=== PATIENT | male | born 1985 | race Caucasian/White ===

== ENCOUNTER 2017-01-13 09:02 | Emergency (ER) | payer SELFPAY ==
[~2017-01-13] VITALS: Ht 162.6 cm; Wt 56.0 kg
[~2017-01-13 09:02] MED LIST: BENT20TA PO; METR-1 PO; ZOFR4TAB3 SL
[2017-01-13 09:04] VITALS: BP 153/90; PULSE 58; RESP 20; TEMP 98; O2SAT 99
[2017-01-13] MEDS ORDERED: SODIUM CHLOR 0.9% 1000 ML INJ 1,000 ML IV SCH (09:34)
[2017-01-13 09:35] VITALS: O2SAT 98
[2017-01-13] MEDS ORDERED: SODIUM CHLORIDE 0.9% FLUSH 5 ML FLUSH IVF PRN (09:45)
[2017-01-13] MEDS ORDERED: MORPHINE SULFATE 4 MG/ML INJ IV PUSH ONE (09:45)
[2017-01-13] MEDS ORDERED: ONDANSETRON HCL 4 MG/2 ML VIAL IVP ONE (09:45)
[2017-01-13 09:51] LABS: AUTOMATED NEUTROPHIL # 6.2 TH/MM3 (1.8-7.7); BASOPHIL % 0.4 % (0.0-2.0); EOSINOPHIL % 0.2 % (0.0-4.0); HEMATOCRIT 41.9 % (39.0-51.0); HEMO FLAGS DIFF FINAL; LYMPH % 16.7 % (9.0-44.0); LYMPHOCYTE # 1.3 TH/MM3 (1.0-4.8); MEAN CELL VOLUME 79.8 FL (80.0-100.0); MEAN CORPUSCULAR HEMOGLOBIN 26.6 PG (27.0-34.0); MEAN CORPUSCULAR HGB CONC 33.3 % (32.0-36.0); MONO % 4.5 % (0.0-8.0); NEUT % 78.2 % (16.0-70.0); PLATELET COUNT 264 TH/MM3 (150-450); RED BLOOD COUNT 5.25 MIL/MM3 (4.50-5.90); RED CELL DISTRIBUTION WIDTH 13.1 % (11.6-17.2); WHITE BLOOD COUNT 7.9 TH/MM3 (4.0-11.0)
[2017-01-13 09:52] LABS: BACTERIA, URINE RARE /hpf; BLOOD, URINE NEG (NEG); GLUCOSE,URINE NEG (NEG); KETONE, URINE 40 mg/dL (NEG); MUCUS URINE MANY /lpf (OCC); NITRITE,URINE NEG (NEG); PH, URINE 7.5 (5.0-8.5); SQUAMOUS EPITHELIAL CELL URINE <1 /hpf (0-5); URINE COLOR YELLOW (YELLW/STRAW)
[2017-01-13 10:00] LABS: COMMENT (UR) CULT NOT INDICATED; CULTURE IF INDICATED CULT NOT INDICATED
[2017-01-13 10:07] LABS: ANION GAP 6 MEQ/L (5-15); AST (GOT) 37 U/L (15-37); BICARBONATE 29.1 MEQ/L (21.0-32.0); BLOOD UREA NITROGEN 14 MG/DL (7-18); CHLORIDE 106 MEQ/L (98-107); GLOMERULAR FILTRATION RATE 99 ML/MIN (>89); POTASSIUM 3.8 MEQ/L (3.5-5.1); SODIUM (NA) 141 MEQ/L (136-145)
[2017-01-13 10:11] VITALS: BP 141/90; PULSE 64; RESP 19; O2SAT 98
[2017-01-13 10:11] LABS: ALKALINE PHOSPHATASE 142 U/L (45-117); ALT (GPT) 53 U/L (12-78); TOTAL BILIRUBIN ADULT 0.4 MG/DL (0.2-1.0)
--- NOTE | 2017-01-13 10:11 | PD ---
HPI Chief Complaint: Abdominal Pain Time Seen by Provider: 09:31 Travel History International Travel<30 days: No Contact w/Intl Traveler<30days: No Traveled to known affect area: No History of Present Illness HPI Patient is a 31-year-old male presents emergency department with complaint of abdominal pain. Patient woke up this morning with left upper abdominal pain, nausea and vomiting. States he is thrown up "too many times to count". Vomited yellow. No hematemesis, hematochezia. Patient states he has a history of similar abdominal pain and takes Zantac intermittently but not daily. He notes a history of a previous cholecystectomy, denies history of pancreatitis or other hepatobiliary, splenic pathology. Normal bowel movements, urinary symptoms. PFSH Past Medical History Medical History: Denies Significant Hx Hx Anticoagulant Therapy: No Cardiovascular Problems: No Chemotherapy: No Cerebrovascular Accident: No Diabetes: No Diminished Hearing: No Respiratory: No Tetanus Vaccination: Unknown ?: Not Past Surgical History Cholecystectomy: Yes Social History Alcohol Use: No Tobacco Use: No Substance Use: No (siboxin iv) Allergies-Medications (Allergen,Severity, Reaction): Coded Allergies: Blueberry (Verified Allergy, Severe, Rash, 01/13/17) Reported Meds & Prescriptions Reported Meds & Active Scripts Active No Active Prescriptions or Reported Medications Review of Systems Except as stated in HPI: all other systems reviewed are Neg Physical Exam Narrative GENERAL: Well-appearing male in mild distress holding abdomen SKIN: Warm and dry. HEAD: Normocephalic. EYES: No scleral icterus. No injection or drainage. ENT: Mucous membranes pink and moist. NECK: Supple CARDIOVASCULAR: Regular rate and rhythm. No murmur appreciated. RESPIRATORY: No accessory muscle use. Clear to auscultation. Breath sounds equal bilaterally. GASTROINTESTINAL: Abdomen soft, mild to moderate left upper quadrant and epigastric abdominal tenderness, no rebound or guarding. No hepatosplenomegaly MUSCULOSKELETAL: Normal gait NEUROLOGICAL: Awake and alert. Normal speech. PSYCHIATRIC: Appropriate mood and affect; insight and judgment normal. Data Data Last Documented VS Vital Signs Date Time Temp Pulse Resp B/P Pulse Ox O2 Delivery O2 Flow Rate FiO2 01/13/17 12:10 61 16 146/83 98 Room Air 01/13/17 09:04 98.0 Orders Complete Blood Count With Diff (01/13/17 09:34) Comprehensive Metabolic Panel (01/13/17 09:34) Lipase (01/13/17 09:34) Urinalysis - C+S If Indicated (01/13/17 09:34) Iv Access Insert/Monitor (01/13/17 09:34) Ecg Monitoring (01/13/17 09:34) Oximetry (01/13/17 09:34) Morphine Inj (Morphine Inj) (01/13/17 09:45) Ondansetron Inj (Zofran Inj) (01/13/17 09:45) Sodium Chlor 0.9% 1000 Ml Inj (Ns 1000 M (01/13/17 09:34) Sodium Chloride 0.9% Flush (Ns Flush) (01/13/17 09:45) Pantoprazole Inj (Protonix Inj) (01/13/17 10:15) Al-Mag Hy-Si 40-40-4 Mg/Ml Liq (Mag-Al P (01/13/17 10:15) Lidocaine 2% Viscous (Xylocaine 2% Visco (01/13/17 10:15) Ketorolac Inj (Toradol Inj) (01/13/17 10:30) Diphenhydramine Inj (Benadryl Inj) (01/13/17 10:30) Metoclopramide Inj (Reglan Inj) (01/13/17 10:30) Prochlorperazine Inj (Compazine Inj) (01/13/17 11:15) Labs Laboratory Tests Test 01/13/17 09:41 White Blood Count 7.9 TH/MM3 Red Blood Count 5.25 MIL/MM3 Hemoglobin 14.0 GM/DL Hematocrit 41.9 % Mean Corpuscular Volume 79.8 FL Mean Corpuscular Hemoglobin 26.6 PG Mean Corpuscular Hemoglobin 33.3 % Concent Red Cell Distribution Width 13.1 % Platelet Count 264 TH/MM3 Mean Platelet Volume 7.6 FL Neutrophils (%) (Auto) 78.2 % Lymphocytes (%) (Auto) 16.7 % Monocytes (%) (Auto) 4.5 % Eosinophils (%) (Auto) 0.2 % Basophils (%) (Auto) 0.4 % Neutrophils # (Auto) 6.2 TH/MM3 Lymphocytes # (Auto) 1.3 TH/MM3 Monocytes # (Auto) 0.4 TH/MM3 Eosinophils # (Auto) 0.0 TH/MM3 Basophils # (Auto) 0.0 TH/MM3 CBC Comment DIFF FINAL Differential Comment Urine Color YELLOW Urine Turbidity CLEAR Urine pH 7.5 Urine Specific [place] 1.026 Urine Protein 30 mg/dL Urine Glucose (UA) NEG mg/dL Urine Ketones 40 mg/dL Urine Occult Blood NEG Urine Nitrite NEG Urine Bilirubin NEG Urine Urobilinogen 4.0 MG/DL Urine Leukocyte Esterase NEG Urine RBC 1 /hpf Urine WBC 1 /hpf Urine Squamous Epithelial <1 /hpf Cells Urine Bacteria RARE /hpf Urine Mucus MANY /lpf Microscopic Urinalysis Comment CULT NOT INDICATED Sodium Level 141 MEQ/L Potassium Level 3.8 MEQ/L Chloride Level 106 MEQ/L Carbon Dioxide Level 29.1 MEQ/L Anion Gap 6 MEQ/L Blood Urea Nitrogen 14 MG/DL Creatinine 0.90 MG/DL Estimat Glomerular Filtration 99 ML/MIN Rate Random Glucose 137 MG/DL Calcium Level 9.0 MG/DL Total Bilirubin 0.4 MG/DL Aspartate Amino Transf 37 U/L (AST/SGOT) Alanine Aminotransferase 53 U/L (ALT/SGPT) Alkaline Phosphatase 142 U/L Total Protein 8.2 GM/DL Albumin 4.4 GM/DL Lipase 74 U/L [facility] Medical Decision Making Medical Screen Exam Complete: Yes Emergency Medical Condition: Yes Medical Record Reviewed: Yes Differential Diagnosis 31-year-old male with history of intermittent abdominal pain here with complaint of left upper quadrant and epigastric abdominal pain, nausea vomiting since waking this morning. Differential includes gastritis, pancreatitis, hepatobiliary pathology, peptic ulcer disease, cyclic vomiting syndrome, gastroparesis. Abdominal examination is benign making peritoneal pathology unlikely. Narrative Course Patient placed on monitor, IV established and blood obtained. Given 1 L normal saline bolus, 4 mg morphine, 4 mg Zofran. CBC, CMP, lipase, urinalysis were obtained and unremarkable. Patient still uncomfortable. Given IV PPI and GI cocktail, and probably vomited. Given Benadryl, Reglan. She'll nauseous. Given Compazine, Toradol with improvement of his symptoms now able to tolerate. Patient states that the Compazine has been most effective. He was able to tolerate oral challenge and will be discharged home. Diagnosis Primary Impression: Gastritis Qualified Code: K29.00 - Acute gastritis without hemorrhage, unspecified gastritis type Additional Impression: Nausea & vomiting Qualified Code: R11.2 - Non-intractable vomiting with nausea, unspecified vomiting type Referrals: Primary Care Physician call for appointment Additional Instructions: Compazine as needed for nausea, vomiting. Protonix as prescribed for antacid. Med/Other Pt SpecificInfo: Prescription(s) given Scripts Pantoprazole (Protonix)40 Mg Tab40 Mg PO DAILY #30 TAB Ref 0 Prov:Sadie Rose MD 01/13/17 Prochlorperazine Maleate 10 Mg Tab10 Mg PO Q4H PRN (NAUSEA OR VOMITING) #10 TAB Ref 0 Prov:Sadie Rose MD 01/13/17 Disposition: 01 DISCHARGE HOME Condition: Stable Sadie Rose MD Jan 13, 2017 10:11
[2017-01-13] MEDS ORDERED: LIDOCAINE VISCOUS 2% SOLN 15 ML UDC PO ONE (10:15)
[2017-01-13] MEDS ORDERED: PANTOPRAZOLE SODIUM 40 MG VIAL IVP ONE (10:15)
[2017-01-13] MEDS ORDERED: ALUMINUM/MAGNESIUM/SIMETH 30 ML CUP PO ONE (10:15)
[2017-01-13] MEDS ORDERED: KETOROLAC TROMETHAMINE 30 MG/ML (IVP) VIAL IVP ONE (10:30)
[2017-01-13] MEDS ORDERED: diphenhydrAMINE HCL 50 MG/ML VIAL IVP ONE (10:30)
[2017-01-13] MEDS ORDERED: METOCLOPRAMIDE HCL 10 MG/2 ML VIAL IVP ONE (10:30)
[2017-01-13] MEDS ORDERED: PROCHLORPERAZINE INJ 10 MG/2 ML VIAL IVS ONE (11:15)
[2017-01-13 12:10] VITALS: BP 146/83; PULSE 61; RESP 16; O2SAT 98
[2017-01-13] MEDS ORDERED: PROC10TA PO (12:20)
[2017-01-13] MEDS ORDERED: PROT40TA PO (12:20)
== END 2017-01-13 14:19 | disposition home or self-care (01) ==
LOC: NEPA 09:02
DX: K29.70 Gastritis, unspecified, without bleeding (principal); R11.2 Nausea with vomiting, unspecified
CPT/HCPCS: 80053; 81001; 83690; 85025; 96361; 96374; 96375; 99284; C9113; J0780; J1200; J1885; J2270; J2405; J2765; J7030